=== PATIENT | male | born 1960 | race Caucasian/White ===

== ENCOUNTER → 2020-09-15 09:50 | Outpatient (BNVA) | payer OTHER, SELFPAY | PROVIDERS: PCP Internal Medicine; Visit Provider Physician Assistant | DX: K21.9 Gastro-esophageal reflux disease without esophagitis (principal) | CPT/HCPCS: Q3014 ==

== ENCOUNTER → 2021-12-16 08:16 | Outpatient (BNVA) | payer OTHER, SELFPAY | PROVIDERS: PCP Internal Medicine; Referring Provider Internal Medicine; Visit Provider Physician Assistant | DX: Z76.0 Encounter for issue of repeat prescription (principal); K21.9 Gastro-esophageal reflux disease without esophagitis | CPT/HCPCS: 99212 ==

== ENCOUNTER 2023-01-05 12:59 | Outpatient (AMB) | payer OTHER, SELFPAY ==
--- NOTE | 2023-01-05 13:05 | A.OFFVIS_ITS ---
Intake Vital Signs 01/05/23 13:07 Height 5 ft 7 in Weight 198 lb 6.656 oz BMI 31.1 BP 159/88 H Blood Pressure Location Lt brachial Position Sitting Pulse 58 Intake Visit Reasons: acid reflex / refills Intake Note: Torito presents in the office as a f/u patient for acid reflux and refills. CC: He does not have symptoms really - only once in a blue he will get symptoms but they are not severe. 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 Allergies No Known Allergies Allergy (Verified 01/05/23 13:07) Medication List - Last Reconciled 01/05/23 by Renae Meyers PA-C lisinopril 5 mg PO DAILY omeprazole 20 mg PO DAILY 30 days HPI HPI Comments History of Present Illness Details A 62 y/o male - Acid reflux- good coverage -omeprazole 20 mg- EGD with dilation- esphagitis/ normal colonoscopy - repeat colon 2030 No other GI or general complaints- He monitors his BP- only elevated in MD office No nausea, vomiting, hematemesis, hematochezia, abdominal pain, chest pain, shortness of breath fever or chills PFSH Medical History Acid reflux HTN (hypertension) Surgical History History of esophagogastroduodenoscopy (EGD) Hx of colonoscopy Family History Brother Diabetes Maternal Uncle Heart disease Maternal Uncle Heart disease Social History Household Members: None Alcohol intake: current Alcohol intake frequency: a few times a month Current occupational status: employed Current occupation: Retail Event Assistant Review of Systems Const All systems reviewed & are unremarkable except as noted in HPI and below Card Denies chest pain and Denies dyspnea Resp Denies dyspnea GI Denies abdominal pain, Denies heartburn, Denies nausea and Denies vomiting Physical Exam Vital Signs: Last Vital Signs Pulse 58 01/05/23 13:07 BP 159/88 H 01/05/23 13:07 BMI result Body Mass Index 31.1 Const General: cooperative, healthy appearing, comfortable and no acute distress Resp Effort & Inspection: normal respiratory effort and able to speak in complete sentences Auscultation: clear to auscultation bilaterally and no wheezes Cardio Rate: regular rate Rhythm: regular rhythm Heart sounds: S1 normal heart sound present and S2 normal heart sound present GI Palpation (GI): Soft to palpation and nontender Auscultation: normal bowel sounds Skin General skin exam: no rashes or lesions noted Extrem General: Yes full ROM Psych Appearance: grossly normal and well kempt Mental Status: mental status grossly normal Speech and movement: Normal speech and movement present and Clear speech present Affect: normal affect Attitude: cooperative Thought process: Normal thought process present Thought content: Normal thought content present Insight: Good insight present (Psych) Judgement: Good judgement present (Psych) Results Reviewed Results Reviewed: 2019- Dr. Sheffield Colonoscopy Findings: Internal Hemorrhoids on retroflexed exam. Plan: Await pathology results high fiber diet Repeat Colonoscopy interval in 10 yrs or earlier if clinically indicated If not taking PPI then can consider after path comes back Assessment & Plan Assessment & Plan (1) Acid reflux: Comment: Very pleasant, active, well controlled acid Continue omeprazole 20 mg, sent new prescription, avoid culprits Code(s): K21.9 - Gastro-esophageal reflux disease without esophagitis Plan Omeprazole 20 mg daily, reviewed reflux precautions avoid culprits Medications: Refilled omeprazole 20 mg PO DAILY 30 caps 12RF 30 days Patient Instructions: Pleasant 62-year-old male well controlled acid reflux with dietary modifications and omeprazole 20 mg daily. He will continue of sent to new prescription. We reviewed previous EGD from 2019 Continue to avoid culprits Encouraged to call questions or concerns Appreciate the opportunity assist in the care this pleasant Gent Coding Level of Care Code New Pt Level 3 (68238) Diagnoses Acid reflux K21.9 Time Spent (min) 25
[2023-01-05 13:07] VITALS: BP 159/88; PULSE 58; BMI 31.1
== END 2023-01-05 13:42 | disposition home or self-care (01) ==
PROVIDERS: PCP Internal Medicine; Visit Provider Physician Assistant
DX: K21.9 Gastro-esophageal reflux disease without esophagitis (principal)
CPT/HCPCS: 99213

== ENCOUNTER → 2023-01-05 12:59 | Outpatient (BNVA) | payer OTHER, SELFPAY | PROVIDERS: PCP Internal Medicine; Visit Provider Physician Assistant ==

== ENCOUNTER 2024-09-10 08:45 | Outpatient (REF) | payer OTHER, SELFPAY ==
--- OUTSIDE RECORDS SUMMARY | 2024-09-10 09:17 | XMS_ITS | Encounter Summary ---
Author Organization [employer] [facility] Address [address] [place] [address] Care Team Providers Care Turret Punch Press Operator Name Role Phone Leann Ferris MD Primary Care Provider [phone] Sudeep Diallo MD Primary Care Prov ider Reason for Visit * Reason Comments Med Refill Encounter Details Date Type Department Care Team ([facility] st Contact Info) Description 12/15/2022 Refill [facility] CHC MED & PEDS [address] [place] [address] Leann Ferris MD [address] [place] [address] Social History Tobacco Use Types Packs/Day Years Used Date Smoking Tobacco: Never Assessed Sex and Gender Information Value Date Recorded Sex Assigned at Male 03/07/2022 10:36 AM EDT Legal Sex Male 10:36 AM EDT Gender Identity Male 03/07/2022 10:36 AM EDT Sexual Orientation Straight 03/07/2022 10 :36 AM EDT documented as of this encounter Plan of Treatment Not on file documented as of this encounter Visit Diagnoses Not on filedocumented in this encounter Care Teams Turret Punch Press Operator Relationship Specialty Start Date End Date Leann Ferris MD [address] [place] [address] PCP - General Internal Medicine 01/30/19 05/28/23 Sudeep Diallo MD [address] [place] [address] PCP - General Internal Medicine 03/11/24 documented as of this encounter
--- OUTSIDE RECORDS SUMMARY | 2024-09-10 09:17 | XMS_ITS | Encounter Summary ---
Author Organization [employer] Address [address] [facility] 7t [place] [address] Care Team Providers Care Shaker Plate Operator Name Role Phone Sudeep Diallo MD Primary Care Prov ider Encounter Details Date Type Department Care Team (Late st Contact Info) Description 05/29/2024 Orders Only [facility] [address] [place] [address] ProviderChely MD Social History Tobacco Use Types Packs/Day Years Used Date Smoking Tobacco: Never Smokeless Tobacco: Never Alcohol Use Standard Drinks/Week Comments Yes 0 (1 standard drink = 0.6 oz pur e alcohol) wine daily Depression Answer Date Recorded Patient Health Questionnaire-9 Score 0 03/11/2024 Patient Health Questionnaire-9 Score 0 03/11/2024 Last PHQ-9: Questionnaire Data Not on file 1 05/11/2023 Housing Stability Answer Date Recorded What is your housing situation today? I have christianolevar deleon 03/11/[address] you li ve. Do you have problems with any of the following? None of the above 03/11/2024 Food Insecurity Answer Date Recorded Within the past 12 months, y ou worried that your food would run out before you got money to buy more: Never True 03/11/2024 Within the past 12 months,th e food you bought just didn't last and you didn't have enough money to get more: Never True 08/2023 Transportation Answer Date Recorded In the past 12 months, has l ack of transportation kept you from medical appts, meetings, work or from getting things needed for daily living? No 03/11/2024 Utilities Answer Date Recorded In the past 12 months, has t he electric, gas, oil or water company threatened to shut off services in your home? No 03/11/2024 Depression Answer Date Recorded Patient Health Questionnaire-2 Score 0 03/11/2024 Internet Access Answer Date Recorded Internet Access Q1 Yes 03/11/2024 Internet Access Q2 Not on file 03/11/2024 Sex and Gender Information Value Date Recorded Sex Assigned at Male 03/07/2022 10:36 AM EDT Legal Sex Male 10:36 AM EDT Gender Identity Male 03/07/2022 10:36 AM EDT Sexual Orientation Straight 03/07/2022 10 :36 AM EDT documented as of this encounter Plan of Treatment Not on file documented as of this encounter Procedures Procedure Name Priority Date/Time Associated Diagnosis Comments LIPID PANEL, STANDARD Routine 01/23/2024 11:34 AM EDT COMPREHENSIVE METABOLIC PANEL Routine 01/23/2024 11:34 AM EDT documented in this encounter Results * Comprehensive Metabolic Panel (01/23/2024 11:34 AM EDT) Blood Venous blood specimen / Unknown Historical Provider MD LAB BLOOD ORDERABLES Tuyet l Result * Lipid Panel, Standard (01/23/2024 11:34 AM EDT) Blood Venous blood specimen / Unknown Historical Provider MD LAB BLOOD ORDERABLES Tuyet l Result documented in this encounter Visit Diagnoses Not on filedocumented in this encounter Additional Health Concerns Assessment Noted Time PHQ-9 Depression Total Score: 0 03/11/20 9:02 AM EST documented as of this encounter Care Teams Shaker Plate Operator Relationship Specialty Start Date End Date Sudeep Diallo MD [address] [place] [id number] PCP - General Internal Medicine 03/11/24 documented as of this encounter
--- OUTSIDE RECORDS SUMMARY | 2024-09-10 09:17 | XMS_ITS | Encounter Summary ---
Author Organization [employer] [facility] Address [address] [place] [address] Care Team Providers Care Mate Relief Name Role Phone Leann Ferris MD Primary Care Provider Sudeep Diallo MD Primary Care Prov ider Reason for Visit * Reason Comments Med Refill Encounter Details Date Type Department Care Team ([facility] st Contact Info) Description 11/15/2022 Refill [facility] CHC MED & PEDS [address] [place] [address] Leann Ferris MD [address] [place] [address] Social History Tobacco Use Types Packs/Day Years [...] on filedocumented in this encounter Care Teams Mate Relief Relationship Specialty Start Date End Date Leann Ferris MD [address] [place] [address] PCP - General Internal Medicine 01/30/19 05/28/23 Sudeep Diallo MD [address] [place] [address] PCP - General Internal Medicine 03/11/24 documented as of this encounter
--- OUTSIDE RECORDS SUMMARY | 2024-09-10 09:17 | XMS_ITS | Encounter Summary ---
Author Organization [employer] Address [address] [facility] 7t [place] [address] Care Team Providers Care Drafting Engineer Name Role Phone Sudeep Diallo MD Primary Care Prov ider Reason for Visit * Reason Onset Date Comments New Patient Request 01/22/2024 Encounter Details Date Type Department Care Team ([facility] st Contact Info) Description 01/22/2024 Telephone [facility] [address] [place] [address] Amos Gutierrez MD [address] [place] [address] New Patient Request Social History Tobacco Use Types Packs/Day Years Used Date Smoking Tobacco: Never Assessed Sex and Gender Information Value Date Recorded Sex Assigned at Male 03/07/2022 10:36 AM EDT Legal Sex Male 10:36 AM EDT Gender Identity Male 03/07/2022 10:36 AM EDT Sexual Orientation Straight 03/07/2022 10 :36 AM EDT documented as of this encounter Miscellaneous Notes * Telephone Encounter - Saima Mcdermott - 01/22/2024 3:26 PM EDT Patient added to [facility] New Patient wait list as of 01/22/2024 * Telephone Encounter - Efrain Carbone - 01/22/2024 3:07 PM EDT Tc from patient requesting to become a patient once more for [facility] currently haves [facility] ID number [id number] documented in this encounter Plan of Treatment Not on file documented as of this encounter Visit Diagnoses Not on filedocumented in this encounter Care Teams Drafting Engineer Relationship Specialty Start Date End Date Sudeep Diallo MD [address] [place] [address] PCP - General Internal Medicine 03/11/24 documented as of this encounter
--- OUTSIDE RECORDS SUMMARY | 2024-09-10 09:17 | XMS_ITS | Encounter Summary ---
Author Organization [employer] Address [address] [place] [address] 7 [place] [address] Care Team Providers Care Educator Senior Clinical Name Role Phone Sudeep Diallo MD Primary Care Prov ider Reason for Visit * Reason Comments Med Refill Encounter Details Date Type Department Care Team (Late st Contact Info) Description 01/21/2024 Refill [facility] CHC MED & PEDS [address] [place] [address] Leann Ferris MD [address] [place] [address] Primary hypertension Social History Tobacco Use Types Packs/Day Years [...] documented as of this encounter Visit Diagnoses Diagnosis Primary hypertension Unspecified essential hypertension documented in this encounter Care Teams Educator Senior Clinical Relationship Specialty Start Date End Date Sudeep Diallo MD [address] [place] [address] PCP - General Internal Medicine 03/11/24 documented as of this encounter
--- OUTSIDE RECORDS SUMMARY | 2024-09-10 09:17 | XMS_ITS | Encounter Summary ---
Author Organization [employer] Address [address] [place] [address] [place] [address] Care Team Providers Care Granular Operator Name Role Phone Leann Ferris MD Primary Care Provider [phone] Sudeep Diallo MD Primary Care Prov ider Reason for Visit * Reason Onset Date Comments Medication Question 01/13/2023 Encounter Details Date Type Department Care Team ([facility] st Contact Info) Description 01/13/2023 Telephone [facility] CHC MED & PEDS [address] [place] [address] Leann Ferris MD [address] [place] [address] Medication Question Social History Tobacco Use Types Packs/Day Years Used Date Smoking Tobacco: Never Assessed Sex and Gender Information Value Date Recorded Sex Assigned at Male 03/07/2022 10:36 AM EDT Legal Sex Male 10:36 AM EDT Gender Identity Male 03/07/2022 10:36 AM EDT Sexual Orientation Straight 03/07/2022 10 :36 AM EDT documented as of this encounter Miscellaneous Notes * Telephone Encounter - Kyra Denton - 01/13/2023 8:40 AM EDT TC from pt requesting to switch quantity of medication lisinopril 5 MG tablet instead of 30 tabletsif it can be a 90 day supply . Please call pt to clarify . documented in this encounter Plan of Treatment Not on file documented as of this encounter Visit Diagnoses Not on filedocumented in this encounter Care Teams Granular Operator Relationship Specialty Start Date End Date Leann Ferris MD [address] [place] [address] PCP - General Internal Medicine 01/30/19 05/28/23 Sudeep Diallo MD [address] [place] [address] PCP - General Internal Medicine 03/11/24 documented as of this encounter
--- OUTSIDE RECORDS SUMMARY | 2024-09-10 09:17 | XMS_ITS | Clinical Summary ---
Author Organization [facility] Address [address] [place] [address] Care Team Providers Care Exerciser Name Role Phone Unavailable Primary Care Provider Unavailabl e Social History Tobacco Use Types Packs/Day Years Used Date Smoking Tobacco: Never Assessed Sex and Gender Information Value Date Recorded Sex Assigned at Not on file Legal Sex Male 5:27 AM EDT Gender Identity Not on file Sexual Orientation Not on file Plan of Treatment Health Maintenance Due Date Last Done Comments Hepatitis C Virus Screening 1960 HIV Screening 1973 DTaP/Tdap/Td Vaccines (1 - Tdap) 1979 Pneumococcal Vaccines 50+ (1 of 1 - PCV) 2010 Zoster (Shingles) Vaccine (1 of 2) 2010 COVID-19 Vaccine ( - 2023-2 5 season) 2024 RSV Vaccine 60 years and old er and Patients (1 - 1-dose 75+ series) 2035 Hepatitis B Vaccines Aged Out No long er eligible based on patient's age to complete this topic
--- OUTSIDE RECORDS SUMMARY | 2024-09-10 09:17 | XMS_ITS | Clinical Summary ---
Author Organization [employer] Address [address] [place] [address] Care Team Providers Care Boiler Repair Supervisor Name Role Phone Sudeep Diallo MD Primary Care Prov ider Allergies No known active allergies Medications lisinopril (Prinivil) 5 MG tabletIndications :Primary hypertension Take 1 tablet (5 mg) by mouth Once per day. 90 tablet 3 4 03/11/20 25 Active Omeprazole 20 MG tablet delayed-release Take 20 mg by mouth Once per day. 90 tablet 3 4 03/11/20 25 Active triamcinolone (Kenalog) 0.1 % cream Apply topically if needed in the morning and at bedtime (pain and swelling). 30 g 5 5 Active Active Problems Problem Noted Date Diagnosed Date Intrinsic eczema 05/20/2024 Assessment & Plan (05/20/2024 7:34 PM EST): Will provide triamcinolone, call back if worsening Screening for prostate cancer 05/20/2024 Assessment & Plan (05/20/2024 7:34 PM EST): Will add PSA Screening for colon cancer 05/20/2024 Assessment & Plan (09/04/2024 10:15 AM EDT): Patient prefers doing cologuard, will send order Assessment & Plan (05/20/2024 7:35 PM EST): Will refer to Gi for evaluation Primary hypertension 03/11/2024 Assessment & Plan (09/04/2024 10:15 AM EDT): Controlled, keep low sodium diet and exercise as tolerated, keep bp log, target <140/90 Assessment & Plan (05/20/2024 7:33 PM EST): Slightly above target, patient did not brought home bp results, wants to keep same treatment, told to keep low sodium diet, will follow up in 3-4 months Labs done 3 months ago reviewed, will add to system, Assessment & Plan (03/11/2024 9:48 AM EST): Will renew lisinopril, keep low sodium diet and exercise as tolerated, keep bp log, follow up in office Gastroesophageal reflux disease without esophagi tis 03/11/2024 Assessment & Plan (05/20/2024 7:33 PM EST): Continue omeprazole as needed Assessment & Plan (03/11/2024 9:48 AM EST): Will renew omperazole, continue lifestyle modifications Encounter for medical examination to establish c are 03/11/2024 Assessment & Plan (03/11/2024 9:50 AM EST): Past pcp follow up 2-3 years ago Hx hospitalization: appendicits 1979?/, cholecystitis 1994 Pmhx: gerd/htn Psh: appendectomy 1979?, cholecystectomy 1994, right rotator cuff surgery 2020 All- Meds: lisinopril 5mg, omeprazole 20mg Encounters Date Type Department Care Team Description 09/04/2024 9:30 AM EDT Telemedicine [facility] MED & PEDS [address] [place] [address] Sudeep Diallo MD Screening for colon cancer (Primary Dx); Primary hypertension 09/04/2024 Travel from Last 3 Months Family History Medical History Relation Name Comments Diabetes Brother No Known Problems Father Atrial fibrillation Mother Heart disease Mother's Brother Cancer Neg Hx Relation Name Status Comments Brother Father Mother Mother's Brother Social History Tobacco Use Types Packs/Day Years Used Date Smoking Tobacco: Never Smokeless Tobacco: Never Tobacco Cessation:Counseling Given: Not Answered Alcohol Use Standard Drinks/Week Comments Yes 0 (1 standard drink = 0.6 oz pur e alcohol) wine daily Depression Answer Date Recorded Patient Health Questionnaire-9 Score 0 03/11/2024 Patient Health Questionnaire-9 Score 0 03/11/2024 Last PHQ-9: Questionnaire Data Not on file 1 05/11/2023 Housing Stability Answer Date Recorded What is your housing situation today? I have christiano deleon 03/11/[address] you [...] Orientation Straight 03/07/2022 10 :36 AM EDT Last Filed Vital Signs Vital Sign Reading Time Taken Comments Blood Pressure 124/80 09/04/2024 9:46 AM EDT Pulse 88 05/20/2024 8:44 AM EST Temperature 36.2 ??C (97.2 ??F) 05/20/2024 8:44 AM ES T Respiratory Rate 20 05/20/2024 8:44 AM EST Oxygen Saturation - - Inhaled Oxygen Concentration - - Weight 90.3 kg (199 lb) 05/20/2024 8:44 AM EST Height 170.2 cm (5' 7 ) 05/20/2024 8:44 AM EST Body Mass Index 31.17 05/20/2024 8:44 AM EST Plan of Treatment Health Maintenance Due Date Last Done Comments CT Colonography 1960 Colonoscopy 1960 Colorectal Cancer Screening 1960 FIT DNA/Cologuard 1960 FIT 1960 FOBT 1960 HIV Screening 1960 Sigmoidoscopy 1960 Alcohol/Substance Use Screening 1972 Hepatitis C Screening 1978 Pneumococcal Vaccine: 50+ Years (1 of 1 - PCV) 2010 COVID-19 Vaccine ( season) 2024 02/09/2022, 05/07/2021, 09/07/2020, Additional history exists Depression Screening 03/11/2025 03/11/2024, 03/11/20 24 SDOH Screening 03/11/2025 03/11/2024 Tobacco Screening 03/11/2025 03/11/2024 Lipid Panel 01/22/2029 01/23/2024, 08/12/2020 DTaP/Tdap/Td Vaccines (2 - Td or Tdap) 07/23/2030 07/23/2020 RSV Patients and Patients Aged 60 years or older (1 - 1-dose 75+ series) 2035 Zoster Vaccines Completed 05/07/2019, 01/30/2019 Influenza Vaccine Completed 02/05/2024, , 02/09/2022, Additional history exists HIB Vaccines Aged Out No longer eligi ble based on patient's age to complete this topic HPV Vaccines Aged Out No longer eligi ble based on patient's age to complete this topic Hepatitis A Vaccines Aged Out No long er eligible based on patient's age to complete this topic Hepatitis B Vaccines Aged Out No long er eligible based on patient's age to complete this topic IPV Vaccines Aged Out No longer eligi ble based on patient's age to complete this topic Meningococcal Vaccine Aged Out No melinda michelle eligible based on patient's age to complete this topic RSV under 20 months Aged Out No longe r eligible based on patient's age to complete this topic Rotavirus Vaccines Aged Out No longer eligible based on patient's age to complete this topic Procedures Procedure Name Priority Date/Time Associated Diagnosis Comments LIPID PANEL, STANDARD Routine 01/23/2024 11:34 AM EDT from Last 3 Months or Most Recently Relevant to Health Maintenance Results * Lipid Panel, Standard (01/23/2024 11:34 AM EDT) Blood Venous blood specimen / Unknown Historical Provider LAB BLOOD ORDERABLES Tuyet l Result from Last 3 Months or Most Recently Relevant to Health Maintenance Insurance [facility] Care Teams Boiler Repair Supervisor Relationship Specialty Start Date End Date Sudeep Diallo MD [address] [place] [address] PCP - General Internal Medicine 03/11/24
--- OUTSIDE RECORDS SUMMARY | 2024-09-10 09:17 | XMS_ITS | Data Portability ---
Author Organization MD - [facility], [employer] Address [address] [facility] [address] [place] [address] Care Team Providers Care Chemistry Lab Instructor Name Role Phone MARTIN SHANNON [employer] Assessment Encounter Date Assessment Date Assessment LastModified by Organization Details LastModified Time 10/15/2021 10/15/2021 Patient is moderate risk candidate or moderate risk surgery. RCRI risk score is less than 1. Risk factors for pulmonary disease include: None [email or web address] Not available 10/15/2021 13:40:47 Plan of Treatment Reminders Order Date Submit Date Provider Last Modified By Organization Details Last Modified Time Details Appointments None recorded. Lab CBC w/ auto diff 2021 022 [employer] [facility], [address] [place], [address], 23:54:19 CMP, serum or plasma 2021 022 [employer] [facility], [address] [place], [address], 23:54:19 Referral None recorded. Procedures None recorded. Surgeries None recorded. Imaging electrocard iogram [address], [address] [facility], [facility] [address], [place], [address], 14:00:01 Medication Orders None recorded. Patient TargetsNo targets recorded. Patient InstructionsNo instructions recorded. Reason for Referral None Reported. Results Created Date Observation Date Name Description Value Unit Range Abnormal Flag Note LastModifiedBy Organization Detail LastModifiedTime 10/16/1910/15/2021 COMPR EHENS GAVIOTA METAB OLIC PANEL glucose 97 mg/dL 65-139 normal Non-f astin g refer ence inter vik Not Available [facility] [address], [place], [address], 10/15/2021 23:54:18 10/16/19 22 10/15/2021 COMPR EHENS GAVIOTA METAB OLIC PANEL urea nitrogen (BUN) 19 mg/dL 7-25 normal Not Available [facility] [address], [place], [address], 10/15/2021 23:54:18 10/16/19 22 10/15/2021 COMPR EHENS GAVIOTA METAB OLIC PANEL creatinine 0.96 mg/dL 0.70-1 .25 normal For patie nts >49 years of age, the refer ence limit for Creat inine is appro ximat atul 13% highe r for peopl e ident ified as Afric an-Am harpreet n. Not Available [facility] [address], [place], [address], 10/15/2021 23:54:18 10/16/19 22 10/15/2021 COMPR EHENS GAVIOTA METAB OLIC PANEL eGFR non-afr. polish 85 mL/mi n/1.7 3m2 > or = 60 normal Not Available [facility] [address], [place], [address], 10/15/2021 23:54:18 10/16/19 22 10/15/2021 COMPR EHENS GAVIOTA METAB OLIC PANEL eGFR 98 mL/mi n/1.7 3m2 > or = 60 normal Not Available [facility] [address], [place], [address], 10/15/2021 23:54:18 10/16/19 22 10/15/2021 COMPR EHENS GAVIOTA METAB OLIC PANEL BUN/creatini ne ratio NOT APPLIC ABLE (calc ) 6-22 Not Available [facility] [address], [place], [address], 10/15/2021 23:54:18 10/16/19 22 10/15/2021 COMPR EHENS GAVIOTA METAB OLIC PANEL sodium 141 mmol/ L 135-14 6 normal Not Available [facility] [address], [place], [address], 10/15/2021 23:54:18 10/16/19 22 10/15/2021 COMPR EHENS GAVIOTA METAB OLIC PANEL potassium 3.9 mmol/ L 3.5-5. 3 normal Not Available [facility] [address], [place], [address], 10/15/2021 23:54:18 10/16/19 22 10/15/2021 COMPR EHENS GAVIOTA METAB OLIC PANEL chloride 108 mmol/ L 98-110 normal Not Available [facility] [address], [place], [address], 10/15/2021 23:54:18 10/16/19 22 10/15/2021 COMPR EHENS GAVIOTA METAB OLIC PANEL carbon dioxide 29 mmol/ L 20-32 normal Not Available [facility] [address], [place], [address], 10/15/2021 23:54:18 10/16/19 22 10/15/2021 COMPR EHENS GAVIOTA METAB OLIC PANEL calcium 9.1 mg/dL 8.6-10 .3 normal Not Available [facility] [address], [place], [address], 10/15/2021 23:54:18 10/16/19 22 10/15/2021 COMPR EHENS GAVIOTA METAB OLIC PANEL protein, total 6.1 g/dL 6.1-8. 1 normal Not Available [facility] [address], [place], [address], 10/15/2021 23:54:18 10/16/19 22 10/15/2021 COMPR EHENS GAVIOTA METAB OLIC PANEL albumin 4.2 g/dL 3.6-5. 1 normal Not Available [facility] [address], [place], [address], 10/15/2021 23:54:18 10/16/19 22 10/15/2021 COMPR EHENS GAVIOTA METAB OLIC PANEL globulin 1.9 g/dL_ (calc ) 1.9-3. 7 normal Not Available [facility] [address], [place], [address], 10/15/2021 23:54:18 10/16/19 22 10/15/2021 COMPR EHENS GAVIOTA METAB OLIC PANEL albumin/glob ulin ratio 2.2 (calc ) 1.0-2. 5 normal Not Available [facility] [address], [place], [address], 10/15/2021 23:54:18 10/16/19 22 10/15/2021 COMPR EHENS GAVIOTA METAB OLIC PANEL bilirubin, total 1.3 mg/dL 0.2-1. 2 high Not Available [facility] [address], [place], [address], 10/15/2021 23:54:18 10/16/19 22 10/15/2021 COMPR EHENS GAVIOTA METAB OLIC PANEL alkaline phosphatase 68 U/L 35-144 normal Not Available [facility] [address], [place], [address], 10/15/2021 23:54:18 10/16/19 22 10/15/2021 COMPR EHENS GAVIOTA METAB OLIC PANEL AST 21 U/L 10-35 normal Not Available [facility] [place] [facility] [address], [place], [address], 10/15/2021 23:54:18 10/16/19 22 10/15/2021 COMPR EHENS GAVIOTA METAB OLIC PANEL ALT 15 U/L 9-46 normal Not Available [facility] [place] [facility] [address], [place], [address], 10/15/2021 23:54:18 10/16/19 22 10/15/2021 CBC (INCL UDES DIFF/ PLT) white blood cell count 3.7 thous and/u L 3.8-10 .8 low Not Available [facility] [address], [place], [address], 10/15/2021 23:54:19 10/16/19 22 10/15/2021 CBC (INCL UDES DIFF/ PLT) red blood cell count 4.83 joon on/uL 4.20-5 .80 normal Not Available [facility] [place] [facility] [address], [place], [address], 10/15/2021 23:54:19 10/16/19 22 10/15/2021 CBC (INCL UDES DIFF/ PLT) hemoglobin 14.7 g/dL 13.2-1 7.1 normal Not Available [facility] [place] [facility] [address], [place], [address], 10/15/2021 23:54:19 10/16/19 22 10/15/2021 CBC (INCL UDES DIFF/ PLT) hematocrit 42.8 % 38.5-5 0.0 normal Not Available [facility] [address], [place], [address], 10/15/2021 23:54:19 10/16/19 22 10/15/2021 CBC (INCL UDES DIFF/ PLT) MCV 88.6 fL 80.0-1 00.0 normal Not Available [facility] [place] [facility] [address], [place], [address], 10/15/2021 23:54:19 10/16/19 22 10/15/2021 CBC (INCL UDES DIFF/ PLT) MCH 30.4 pg 27.0-3 3.0 normal Not Available [facility] [place] [facility] [address], [place], [address], 10/15/2021 23:54:19 10/16/19 22 10/15/2021 CBC (INCL UDES DIFF/ PLT) MCHC 34.3 g/dL 32.0-3 6.0 normal Not Available [facility] [place] [facility] [address], [place], [address], 10/15/2021 23:54:19 10/16/19 22 10/15/2021 CBC (INCL UDES DIFF/ PLT) RDW 13.0 % 11.0-1 5.0 normal Not Available [facility] [place] [facility] [address], [place], [address], 10/15/2021 23:54:19 10/16/19 22 10/15/2021 CBC (INCL UDES DIFF/ PLT) platelet count 120 thous and/u L 140-40 0 low Not Available [facility] [place] [facility] [address], [place], [address], 10/15/2021 23:54:19 10/16/19 22 10/15/2021 CBC (INCL UDES DIFF/ PLT) MPV 11.2 fL 7.5-12 .5 normal Not Available [facility] [place] [facility] [address], [place], [address], 10/15/2021 23:54:19 06/10/20 22 10/15/2021 CBC (INCL UDES DIFF/ PLT) absolute neutrophils 2427 cells /uL 1500-7 800 normal Not Available [facility] [place] [facility] [address], [place], [address], 10/15/2021 23:54:19 10/16/19 22 10/15/2021 CBC (INCL UDES DIFF/ PLT) absolute lymphocytes 969 cells /uL 850-39 00 normal Not Available [facility] [place] [facility] [address], [place], [address], 10/15/2021 23:54:19 10/16/19 22 10/15/2021 CBC (INCL UDES DIFF/ PLT) absolute monocytes 263 cells /uL 200-95 0 normal Not Available [facility] [place] [facility] [address], [place], [address], 10/15/2021 23:54:19 10/16/19 22 10/15/2021 CBC (INCL UDES DIFF/ PLT) absolute eosinophils 30 cells /uL 15-500 normal Not Available [facility] [place] [facility] [address], [place], [address], 10/15/2021 23:54:19 10/16/19 22 10/15/2021 CBC (INCL UDES DIFF/ PLT) absolute basophils 11 cells /uL 0-200 normal Not Available [facility] [place] [facility] [address], [place], [address], 10/15/2021 23:54:19 10/16/19 22 10/15/2021 CBC (INCL UDES DIFF/ PLT) neutrophils 65.6 % normal Not Available [facility] [place] [facility] [address], [place], [address], 10/15/2021 23:54:19 10/16/19 22 10/15/2021 CBC (INCL UDES DIFF/ PLT) lymphocytes 26.2 % normal Not Available [facility] [place] [facility] [address], [place], [address], 10/15/2021 23:54:19 10/16/19 22 10/15/2021 CBC (INCL UDES DIFF/ PLT) monocytes 7.1 % normal Not Available [facility] [place] [facility] [address], [place], [address], 10/15/2021 23:54:19 10/16/19 22 10/15/2021 CBC (INCL UDES DIFF/ PLT) eosinophils 0.8 % normal Not Available [facility] [place] [facility] [address], [place], [address], 10/15/2021 23:54:19 10/16/19 22 10/15/2021 CBC (INCL UDES DIFF/ PLT) basophils 0.3 % normal Not Available [facility] [place] [facility] [address], [place], [address], 10/15/2021 23:54:19 10/16/19 22 elect rocar diogr am No observ ation record ed. [email or web address] [facility] [address] [facility] [address], [place], [address], 10/15/2021 13:47:27 10/16/19 22 [facility] rocar diogr am No observ ation record ed. BARCODE [facility] [address], [place], [address], 10/15/2021 14:13:18 Result Notes None recorded. Problems Name Problem SNOMED Code Status Onset Date Resolution Date Notes Provider Name and Address Organization Details Recorded Time Essential hypertension 04567178 Active 2021 Omar Willson MD [address] [facility], [place], [address], [facility] 06/10/202 2 13:27:45 Gastroesophage al reflux disease without esophagitis 663549687 Active 2021 Omar Willson MD [address] [place] [address],[address], [place], [address] , [facility] 13:28:54 Problem Notes None recorded. Procedures Surgical History Date Name Laterality Status Provider Name and Address Organization Details Recorded Time Cholecystectomy completed Omar Willson MD [address] [facility], [place], [address], [facility] 10/15/2021 13:28:39 Appendectomy completed Omar Willson MD [address] [place] [address],[address], [place], [address], [facility] 10/15/2021 13:28:45 Imaging Results Imaging Date Name Status LastModified by Organization Details LastModified Time 10/15/2021 electrocardiogram completed [email or web address] [address], [place], [address], 10/15/2021 13:47:27 10/15/2021 electrocardiogram completed BARCODE [address], [place], [address], 10/15/2021 14:13:18 Procedure Notes None recorded. Medical Equipment None Reported. Allergies No known drug allergies Medications Name Sig Start Date Stop Date Status Note LastModified by Organization Details LastModified Time cyclobenzapr ine 10 mg tablet TAKE 1 TABLET BY MOUTH EVERY 8 HOURS NEEDED FOR SPASM 10/15 completed Not Available Not Available Not Available omeprazole 20 mg capsule,jennifer yed release TAKE 1 CAPSULE BY MOUTH DAILY active Not Available Not Available No t Available lisinopril 5 mg tablet TAKE 1 TABLET BY MOUTH EVERY DAY active Not Available Not Available No t Available naproxen 500 mg tablet TAKE 1 TABLET BY MOUTH TWICE DAILY 10/15 completed Not Available Not Available Not Available Vitals Date Recorded Body height Body mass index (BMI) Body weight Body temperature Heart rate Oxygen saturation Oxygen saturation in Arterial blood by Pulse oximetry Systolic blood pressure Diastolic blood pressure Provider Name and Address Organization Details Last Updated DateTime 2 170.18 cm 30.7 kg/m2 67928.1 g 98.1 [degF] 80 /min 97 % 97 % 135 mm[Hg] 78 mm[Hg] Freya Trammell [facility] 2 13:26:23 Social History Question Answer Notes LastModified by Organizat ion Details LastModified Time Tobacco Smoking Status Never Smoker Freya Trammell archana [facility] 10/15/2021 13:24:47 What Is Your Level Of Alcohol Consumption? Occasional Information not available 10/15/2021 Are You Currently Employed? 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 No Information not available 10/15/2021 Has Tobacco Cessation Counseling Been Provided? No Information not available 10/15/2021 Do You Or Have You Ever Used Any Other Forms Of Tobacco Or Nicotine? No Information not available 10/15/2021 Sex: Unknown Functional Status None recorded. Mental Status None recorded. Family History Relationship Description Onset Age of this Age Resolved Age Notes LastModified by Organization Details LastModified Time Father No current problems or disability Not available 10/15 13:24:25 Mother No current problems or disability Not available 10/15 13:24:25 Medical History No medical history recorded. Past Encounters Encounter ID Performer Location Encounter Start Date Encounter Closed Date Diagnosis/Indication Diagnosis SNOMED-CT Code Diagnosis ICD10 Code Diagnosis Note [id number] Omar Willson MD [facility] [address] [facility] [address] [place] [address] 10/15/2021 13:19:43 10/15/2021 14:00:01 Pre-surgery evaluation 250891116 Z01.818 Patient is healthy and pending labs does not require any further evaluation . Disorder o f rotator cuff 399573498 M75.81 Plan per surgeon Essential hypertension 72994105 I10 BP stable. Cont lisinopril . Gastroesop hageal reflux disease without esophagitis 667991215 K21.9 Cont PPI Health Concerns Section Related Observation LastModified by Organization Detai ls LastModified Time None Recorded Concern Status LastModified by Organization Details LastModified Time None Recorded Advance Directives Directive None Recorded Payers Encounter Date Sequence Insurance Name Policy Number Policy Tom[place] Covered Member ID Tomlin Member ID Guarantor Name 10/15/2021 1 *SELF PAY* Madonna Garcia Notes Date Note Type Note Provider Name and Address Organization Details Recorded Time 10/15/2021 text/html Acid Reflux / GERDReported bypatient.Notes:Us es PPI. Had EGD/colonoscopy a few years ago and stomach was a little inflamed.Hypertens ionReported bypatient.Medicati ons:taking medications as directed; no side effects from medication Associated Symptoms:no dizziness; no lightheadedness; no chest pain; no shortness of breath; no palpitations; no edema; no calf pain with exertion; no headacheNotes: Pre-OpReported bypatient.Notes:Brian summers is here for a preop evaluation. Pt is scheduled for R rotator cuff repair surgery on October 21, 2021. Surgeon: Dimitry Stout MD Smoking status: No. Alcohol use: Mild. Couple of times a week. Sleep apnea: Snoring - Yes, Does not fall asleep easily while driving, Does not fall asleep easily during the day Max Activity Status: able to perform strenuous exercise Omar Willson MD [address] [place] [address],[address], [place], [address], [facility] 10/15/2021 13:47:50
[2024-09-10 14:25] LABS: MANUAL DIFF FLAG NO
[2024-09-10 14:31] LABS: Basophils Percent Auto 0.6 % (0-2); Eosinophils Percent Auto 1.2 % (0-4); Hematocrit 42.2 % (42.0-52.0); Hemoglobin 14.6 g/dl (14.0-18.0); Lymphocytes Absolute Auto 0.9 X10*3/uL (1.2-4.9); Mean Corpuscular HGB Conc 34.6 g/dl (31.0-36.0); Mean Corpuscular Hemoglobin 30.7 pg (27.0-33.0); Mean Corpuscular Volume 88.7 fL (80.0-98.0); Mean Platelet Volume 10.9 fL (9.4-12.4); Monocytes Absolute Auto 0.4 X10*3/uL (0.1-1.2); Monocytes Percent Auto 10.3 % (2-11); Neutrophils Absolute Auto 2.1 x10*3/uL (2.0-8.3); Neutrophils Percent Auto 62.9 % (45-73); Platelet Count 103 X10*3/uL (160-400); Red Blood Count 4.76 X10*6/uL (4.60-5.80); Red Cell Distribution Width 13.5 % (11.0-16.0); White Blood Count 3.4 X10*3/uL (4.8-10.8)
[2024-09-10 15:24] LABS: PSA,Total (Free>4and<10) 2.08 ng/mL (0.00-4.00)
[2024-09-11 04:31] LABS: HIV AB/AG Nonreactive (Nonreactive); HIV Num 1 0.05 S/CO (0.00-0.99); ~HepC Num1 0.05 S/CO (0.00-0.79); ~Hepatitis C Antibody Nonreactive (Nonreactive)
== END 2024-09-10 08:46 | disposition home or self-care (01) ==
LOC: HO.CHCLDS 08:45
PROVIDERS: Visit Provider Internal Medicine
DX: I10 Essential (primary) hypertension (principal)
CPT/HCPCS: 36415; 84153; 84443; 85025; 86803; 87389